=== PATIENT | male | born 1940 | race Caucasian/White ===

== ENCOUNTER 2016-08-27 17:00 | Inpatient (IN) | payer MEDICARE, OTHER ==
[~2016-08-27] VITALS: Ht 167.6 cm; Wt 69.4 kg
--- NOTE | ~2016-08-27 | HP ---
PATIENT'S NAME: ENRIKE MENEZES [facility] AGE: 76 Y [address] ROOM: [place] [address] LOCATION: [facility] ADMIT DATE: 08/27/2016 History & Physical DISCHARGE DATE: FAMILY PHYSICIAN: Brian Shepherd MD ATTENDING PHYSICIAN: Deanna Erickson DATE OF SERVICE: 08/27/2016 PATIENT IDENTIFICATION: Enrike Menezes is a 76-year-old male. PRESENTING COMPLAINT: Fall. HISTORY OF PRESENT ILLNESS: The patient is unable to provide a full history as he does not know exactly what happened and some of the history was obtained from the patient's family members. According to the family member, the patient was found on the ground this morning. His had been wondering where the patient had gone to and eventually found him lying partly on his side in an unresponsive state this morning. The patient was taken to the emergency room at the hospital in [place]. He was found to have a laceration to the left forehead region, which was repaired. He also has some abrasions to his face. Imaging studies showed a left frontal mass with mass effect. The patient was therefore transferred here for evaluation and treatment. According to the patient's , the patient has not been acting himself in the last couple of weeks. For instance, his walking has been slower and his voice not as loud or strong as it used to be. The patient's hand writing has also deteriorated, he is right-handed. He has also taken a number of falls, one time he tripped over a small gate that leads on the kitchen to the living room to prevent the duck from crossing. The patient tripped on this gate and fell. On another occasion, he fell outside. The patient says he has been dragging his right leg slightly when walking. PAST MEDICAL HISTORY: Significant for COPD. The patient also has elevated cholesterol. CURRENT MEDICATIONS: 1. Metoprolol. 2. Ramipril. 3. Atorvastatin. 4. Aspirin. PATIENT'S NAME: ENRIKE MENEZES [facility] AGE: 76 Y [address] ROOM: [place] [address] LOCATION: [facility] ADMIT DATE: 08/27/2016 History & Physical DISCHARGE DATE: FAMILY PHYSICIAN: Brian Shepherd MD ATTENDING PHYSICIAN: Deanna Erickson 5. Combivent. ALLERGIES: PLEASE SEE CHART. REVIEW OF SYSTEMS: A 10-point review of systems was carried out. The only abnormal findings are as described in the history of present illness. FAMILY HISTORY: There is no family history relevant to present problems. SOCIAL HISTORY: The patient is . REVIEW OF IMAGING STUDIES: The patient has had a brain MRI performed at [facility] [place]. The MRI shows a 24 x 18 mm rim-enhancing lesion in the left frontal area, just behind the coronal suture. The mass causes a lot of reactive edema with midline shift and depression of the anterior horn of the left lateral ventricle. Appearances are consistent with a neoplasm. MEDICAL DECISION MAKING: I reviewed the imaging studies with the patient and family members and described the treatment options to them. I explained that the patient has a mass in the left frontal region causing him to have right-sided weakness. I explained to them that in order to establish diagnosis, we would need to obtain some tissue and this could either be done with a biopsy or with craniotomy and resection. I did go over the benefits and risks of biopsy versus craniotomy. I recommended a craniotomy as this would provide more tissue to get a definitive diagnosis and also help to relieve the mass effect that the patient is having on the left frontal lobe. The risks would be worsening of the patient's weakness. The patient is agreeable to have surgery and has consented to the craniotomy. This will be scheduled either tomorrow or early next week. I will obtain an MRI with [facility] protocol to help with surgery planning. MD RAISA CRAWFORDO/syd PATIENT'S NAME: ENRIKE MENEZES [facility] AGE: 76 Y [address] ROOM: [id number] [place] [id number] LOCATION: [facility] ADMIT DATE: 08/27/2016 History & Physical DISCHARGE DATE: FAMILY PHYSICIAN: Brian Shepherd MD ATTENDING PHYSICIAN: Deanna Erickson /[id number] D: [id number] T: [id number] HISTORY & PHYSICAL
--- NOTE | ~2016-08-27 | OR ---
PATIENT'S NAME: DAJUAN YUAN [facility] AGE: 76 Y [address] ROOM: [address] [address] LOCATION: [facility] ADMIT DATE: 08/27/2016 OR/Procedure Report DISCHARGE DATE: 09/02/2016 FAMILY PHYSICIAN: Brian Shepherd MD ATTENDING PHYSICIAN: Deanna Erickson SURGEON: Deanna Erickson MD SHOVEL MECHANIC: Moise Stewart CST. DATE OF PROCEDURE: 08/28/2016 PREOPERATIVE DIAGNOSIS: Left frontal lesion. POSTOPERATIVE DIAGNOSIS: Left frontal lesion. PROCEDURES PERFORMED: 1. Left frontal craniotomy and resection of tumor. 2. Use of frameless stereotactic equipment (Stealth) for surgical planning. 3. Use of operative microscope. ANESTHESIA: General. HISTORY: This patient is a 76-year-old male, who was found lying on the ground, not clear how long he had been there for, and why he fell. He was seen in [facility], and imaging studies showed a rim-enhancing lesion in the left frontal lobe measuring 24 x 18 mm. Surgery was recommended to establish the exact nature of this lesion, and also to reduce mass effect caused by the lesion. The procedure, benefits, and risks were discussed with the patient and family. With their consent, the patient was brought to the Operating Room for surgery. PROCEDURE IN DETAIL: Prior to the surgery, the patient had an MRI scan with [employer] protocol to help with surgical planning. In the Operating Room, the patient was placed in a supine position. Anesthesia was induced. He was intubated. His head was secured in a three-pin Robison head-rose, and appropriate support lines were placed. Using the frameless stereotactic equipment, the tumor site was marked out, and a corresponding incision was made. The hair was clipped around the incision line, and the whole area was prepped and draped in a sterile fashion. Local anesthesia was infiltrated. The #10-blade was used to open the incision. The self-retaining retractor was placed to hold the edges back. The skull was exposed. Aida hole was made, and a small craniotomy flap was turned directly above the tumor site. The frameless stereotactic equipment was again used to verify the tumor location. The dura was opened. The dural leaves were tied back. Microscope was brought in, and under microscopic vision, the area was explored, and almost immediately, the tumor became visible. It was a fairly PATIENT'S NAME: DAJUAN YUAN [facility] AGE: 76 Y [address] ROOM: [id number] [place], [place] [address] LOCATION: [facility] ADMIT DATE: 08/27/2016 OR/Procedure Report DISCHARGE DATE: 09/02/2016 FAMILY PHYSICIAN: Brian Shepherd MD ATTENDING PHYSICIAN: Deanna Erickson well-circumscribed mass measuring approximately the same dimensions as MRI had shown. The #4 [employer] instrument was used to walk around the edges of the mass. Some coagulation was involved and a little bit of suction as well until the mass was mobilized completely. The mass was shelled out in toto, and sent for both frozen section and permanent processing. The area was irrigated and hemostasis was achieved. The dural leaves were closed. The craniotomy bone flap was replaced using sutures. A series of holes were made around the edge of the bone flap and corresponding holes around the craniotomy defect. The sutures were passed between these sets of holes to tie the bone flap back. The scalp was then closed in layers using appropriate suture materials. A sterile dressing was applied. The patient's anesthesia was reversed. His head was removed from the Robison head-rose. He was taken to the Recovery Room after extubation to complete his recovery. ATTESTATION: I was present at and performed every aspect of this procedure, assisted at some stages by Operating Room nurses. COMPLICATIONS: There were no apparent intraoperative complications. COUNT RESULTS: Swabs, needles, and instruments were all accounted for at the end of the case. ESTIMATED BLOOD LOSS: Less than 100 mL. There was no reason for blood transfusion. SPECIMENS: Final pathology is still pending, but the appearances were consistent with metastatic neoplasm. MD RAISA CRAWFORDO/barbaral /[id number] d: 09/02/162015 t: 09/12/162019, OPERATIVE SUMMARY
--- NOTE | ~2016-08-27 | DS ---
PATIENT'S NAME: DAJUAN YUAN AGE: 76 Y [address] ROOM: [facility] [place], [place] [address] LOCATION: [facility] ADMIT DATE: 08/27/2016 Discharge Summary DISCHARGE DATE: 09/02/2016 FAMILY PHYSICIAN: Brian Shepherd MD ATTENDING PHYSICIAN: Deanna Erickson REASON FOR ADMISSION: The patient presented with a history of unwitnessed fall. Imaging studies showed an abnormal area in his left frontal lobe, which turned out to be tumor. Clinically, the patient had a right-sided weakness and some difficulty with ambulation. TREATMENT RENDERED: The patient was taken to the operating room on August 28, 2016. He had left frontal craniotomy and resection of mass. Postoperative MRI confirmed complete resection of the mass. Final pathology indicated that the mass was metastatic tumor. A CT scan of the chest, abdomen, and pelvis did not indicate the source of the tumor. The patient was cared for by Physical Therapy and Occupational Therapy to help his ambulation. He was stable enough for dismissal on September 02 and was discharged home that day. He was transferred to a swing bed in [place]. I will follow him up in the clinic when [facility] [place]. CONDITION ON DISCHARGE: Stable. Incision healing well. 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 Status post craniotomy. MD RAISA CRAWFORDO/modl /[id number] d: 09/13/16 0154 t: 09/13/162000, DISCHARGE SUMMARY
[2016-08-27 22:50] LABS: INR - (THERAPEUTIC) 1.08 (0.92-1.07); PROTIME 11.4 SECONDS (9.8-11.4)
[2016-08-28] MEDS ORDERED: LIPITOR20 M1 PO (14:07)
[2016-08-28] MEDS ORDERED: TEMOVATE 0.05%45 GM TOP (14:07)
[2016-08-28] MEDS ORDERED: LOPRESSOR25 MG PO (14:08)
[2016-08-28] MEDS ORDERED: ASPIRIN EC81 MG PO (14:09)
[2016-08-28] MEDS ORDERED: COMBIVENT RESPIM4 GM INH (14:10)
[2016-08-28] MEDS ORDERED: ADVIL200 MG PO (14:11)
[2016-08-28] MEDS ORDERED: BENADRYL ALLERG25 MG PO (14:11)
[2016-08-28] MEDS ORDERED: CLARITIN D 24HR1 TAB PO (14:12)
[2016-08-29 04:29] LABS: HEMATOCRIT 42.4 % (37.0-53.0); HEMOGLOBIN 13.8 g/dL (11.0-16.0); MCH 31.4 pg (27.0-34.0); MCHC 32.5 gm/dL (32.0-36.5); MCV 96.6 fl (83.0-98.0); MPV 10.7 fl (9.4-12.4); PLATELET COUNT 193 K/uL (150-450); RBC 4.39 M/uL (3.50-5.50)
[2016-08-29 04:31] LABS: WBC 17.3 K/uL (4.0-11.0)
[2016-08-29 04:47] LABS: ALBUMIN 3.2 gm/dL (3.5-5.0); ALK PHOS 114 IU/L (33-138); ALT 49 IU/L (12-78); ANION GAP 11.6 (10.0-19.0); AST 24 IU/L (10-40); BLOOD UREA NITROGEN 20 mg/dL (6-24); CALCIUM 8.5 mg/dL (8.5-10.5); CHLORIDE 105 mMol/L (96-110); CO2 27 mMol/L (22-32); CREATININE 0.8 mg/dL (0.6-1.3); POTASSIUM 4.6 mMol/L (3.7-5.1); SODIUM 139 mMol/L (135-145); TOTAL BILIRUBIN 0.6 mg/dL (0.0-1.5); TOTAL PROTEIN 6.3 g/dL (6.0-8.4)
[2016-08-29 04:50] LABS: ESTIMATED GFR (MDRD EQUATION) > 60
[2016-08-29 05:24] LABS: ABSOLUTE NEUTROPHIL CT (ANC) 15.7 K/uL (1.4-9.0); BANDED NEUTROPHILS % 6 %; LYMPHOCYTE # 0.9 K/uL (0.8-4.0); LYMPHOCYTE % 5 %; MONOCYTE # 0.7 K/uL (0.0-1.0); SEGMENTED NEUTROPHIL # 14.7 K/uL (1.4-9.0); SEGMENTED NEUTROPHIL % 85 %
[2016-09-01 04:28] LABS: ANION GAP 12.3 (10.0-19.0); BLOOD UREA NITROGEN 18 mg/dL (6-24); CALCIUM 8.3 mg/dL (8.5-10.5); CHLORIDE 99 mMol/L (96-110); CO2 31 mMol/L (22-32); CREATININE 0.7 mg/dL (0.6-1.3); POTASSIUM 4.3 mMol/L (3.7-5.1); SODIUM 138 mMol/L (135-145)
[2016-09-01 04:31] LABS: ESTIMATED GFR (MDRD EQUATION) > 60
[2016-10-15] MEDS ORDERED: OMEPRAZOLE40 MG PO (10:34)
[2016-10-15] MEDS ORDERED: AMOXICILLIN500 MG PO (10:35)
[2016-10-15] MEDS ORDERED: BIAXIN500 MG PO (10:36)
[2016-10-15] MEDS ORDERED: OXYGEN M-15 (10:37)
[2017-01-15] MEDS ORDERED: PRILOSEC OTC20 MG PO (12:16)
[2017-01-15] MEDS ORDERED: DECADRON4 MG PO (12:16)
== END 2016-09-02 11:25 | disposition swing bed (61) | DRG 25 ==
LOC: GNTU 18:25
PROVIDERS: ADMIT Neurological Surgery
PROC: 00B70ZX Excision of Cerebral Hemisphere, Open Approach, Diagnostic (ICD-10-PCS; principal; 2016-08-28)
PROC: 8E09XBZ Computer Assisted Procedure of Head and Neck Region (ICD-10-PCS; principal; 2016-08-28)
DX: C71.1 Malignant neoplasm of frontal lobe (principal); G93.6 Cerebral edema; J44.9 Chronic obstructive pulmonary disease, unspecified; E78.00 Pure hypercholesterolemia, unspecified
CPT/HCPCS: A9577; G0237; J0690; J1100; J1953; J2405; J7030; J7050; Q9967

== ENCOUNTER → 2016-10-19 | Day surgery (SDC) | payer MEDICARE, OTHER ==
[~2016-10-19] VITALS: Ht 165.1 cm; Wt 70.1 kg
[~2016-10-19] MED LIST: ADVIL200 MG PO; AMOXICILLIN500 MG PO; ASPIRIN EC81 MG PO; BENADRYL ALLERG25 MG PO; BIAXIN500 MG PO; CLARITIN D 24HR1 TAB PO; COMBIVENT RESPIM4 GM INH; DECADRON4 MG PO; LIPITOR20 M1 PO; LOPRESSOR25 MG PO; OMEPRAZOLE40 MG PO; OXYGEN M-15; PRILOSEC OTC20 MG PO; TEMOVATE 0.05%45 GM TOP
--- NOTE | ~2016-10-19 | OR ---
PATIENT'S NAME: DAJUAN YUAN [facility] AGE: 76 Y [address] ROOM: [place] [address] LOCATION: [facility] ADMIT DATE: 10/19/2016 OR/Procedure Report DISCHARGE DATE: FAMILY PHYSICIAN: Brian Shepherd MD ATTENDING PHYSICIAN: LEONCIO REESE SURGEON: Leoncio Reese MD DATE OF PROCEDURE: 10/19/2016 PROCEDURE COLLAR BASTER JUMPBASTING: Gina Farah, teletype technician. PROCEDURE NAME: 1. Bronchoscopy with endobronchial biopsies of left upper lobe lesion. 2. Bronchoscopy with cytology brushing of left upper lobe lesion. INDICATIONS AND PREPROCEDURE DIAGNOSES: 1. 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 2. Chronic obstructive pulmonary disease. 3. Chronic respiratory failure. 4. History of smoking. POSTPROCEDURE DIAGNOSES: 1. 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 2. Chronic obstructive pulmonary disease. 3. Chronic respiratory failure. 4. History of smoking. CONSENT: Consent was obtained from the patient after all the indications, risks, benefits, and alternatives were explained at length. The patient verbalized understanding and signed an informed consent. PROCEDURE DESCRIPTION: The patient was taken to the endoscopy suite where a laryngeal mask was placed by the Anesthesia team uneventfully. General anesthesia was started. The bronchoscope was advanced through the laryngeal mask and the airways were examined. FINDINGS: The vocal cords had normal appearance. The trachea had small amount of secretions in the distal part. Local anesthesia was obtained with lidocaine solution instillations. I performed a careful examination of both bronchial trees as far as I could advance the bronchoscope. There was a small lesion in the anterior segment of the left upper lobe. Otherwise, the patient had no endobronchial lesions. No old or new blood clots. There was a small amount of clear frothy secretion in both bronchial trees which was suctioned PATIENT'S NAME: DAJUAN YUAN [facility] AGE: 76 Y [address] ROOM: [place] [address] LOCATION: [facility] ADMIT DATE: 10/19/2016 OR/Procedure Report DISCHARGE DATE: FAMILY PHYSICIAN: Brian Shepherd MD ATTENDING PHYSICIAN: LEONCIO REESE. I performed cytology brushings and three endobronchial biopsies from the lesion in the anterior segment of the left upper lobe. There was minimal amount of bleeding that stopped without any further interventions. The bronchoscope was withdrawn, and the patient was returned to the Anesthesia team for further management. COMPLICATIONS: None. ESTIMATED BLOOD LOSS: Less than 5 mL. SPECIMENS: The endobronchial biopsies will be sent for pathology studies and the cytology brushings will be sent for cytology studies. MD MATTHEW OMALLEY/modl /[id number] d: 10/19/167 t: 10/22/16 0755, OPERATIVE SUMMARY
== END ==
LOC: GPOC 10-15 11:00 → GEND 10:40 → GPOC 11:00
PROC: 0BB88ZX Excision of Left Upper Lobe Bronchus, Via Natural or Artificial Opening Endoscopic, Diagnostic (ICD-10-PCS; principal; 2016-10-19)
PROC: 0BBJ8ZX Excision of Left Lower Lung Lobe, Via Natural or Artificial Opening Endoscopic, Diagnostic (ICD-10-PCS; 2016-10-19)
DX: C79.31 Secondary malignant neoplasm of brain (principal); C80.1 Malignant (primary) neoplasm, unspecified; J96.10 Chronic respiratory failure, unspecified whether with hypoxia or hypercapnia; J44.9 Chronic obstructive pulmonary disease, unspecified; Z87.891 Personal history of nicotine dependence; Z79.899 Other long term (current) drug therapy; Z79.82 Long term (current) use of aspirin; Z79.2 Long term (current) use of antibiotics
CPT/HCPCS: J2001; J7030